=== PATIENT | female | born 1970 ===

== ENCOUNTER → 2020-10-14 | Outpatient (REF) ==
--- NOTE | 2020-10-15 06:46 | REP ---
INDICATION: DDD COMPARISON: None. TECHNIQUE: AP, lateral, bilateral oblique views. FINDINGS: No acute fracture or dislocation. Skeletal structures and joint spaces are intact and normal. Ankle mortise appears stable. No subcutaneous emphysema or radiodense foreign body. IMPRESSION: Normal right ankle radiograph series. <Electronically signed by Selwyn Rodriguez > 10/15/20 0639
== END ==
LOC: M RAD 15:48
PROVIDERS: ATTEND Internal Medicine
DX: M19.90 Unspecified osteoarthritis, unspecified site (principal); G62.9 Polyneuropathy, unspecified; M79.7 Fibromyalgia